=== PATIENT | female | born 1945 | race Caucasian/White ===

== ENCOUNTER 2024-05-30 09:36 | Outpatient (RCR) | payer MEDICARE, BC, SELFPAY ==
--- NOTE | 2024-05-30 10:46 | PT.OPEX ---
PT [facility] Eval PT [facility] Out[facility] Eval Start: 05/15/24 13:45 Freq: Status: Active Protocol: Document 05/30/24 07:13 MLS (Rec: 05/30/24 10:43 MLS [id number]) E-signed By Sabi Silver DPT Physical Therapy Outpatient Evaluation Insurance Information Recert Due Date 08/27/24 Insurance Name Medicare B,[employer] Medical Diagnosis M17.12 unilateral primary OA, left knee Z96.652 Presence of left artificial knee joint s/p left TKA 06/05/24 Treating Diagnosis Left TKA protocol Subjective Subjective Patient is a 78 year old female who presents to physical therapy for her pre- op appointment prior to left TKA on 06/05/24. Significant past medical history includes lumpectomy ( previous fall, currently cancer free) and hypertension controlled. Pain Comments Today: 4/10 on a 0-10 pain scale with 10 = extreme pain At its worst: 7/10 At its best: 2/10 Current Work Status Retired Precautions Weight Bearing Status Full Weight Bearing Therapy Limitations/Systems Review Not Limited Objective Other/Pertinent Objective GAIT/FUNCTIONAL MOBILITY KNEE ROM Left: -10-120 Right: WNL HIP ROM Grossly tested WNL LLE MMT: Hip flexion: R 5/5 L 4/5 Hip abduction: R 4/5 L 4/5 Hip extension: R 4/5 L 4/5 Knee flexion: R 5/5 L 4/5 Knee extension: R 5/5 L 4/5 Reviewed/demonstrated on frequency to perform HEP post operatively including: long sitting quad ankle pumps supine heel slide with strap supine quad sets supine SAQ SLR with quad set seated long arc quad seated knee flexion AAROM supine knee extension stretch on towel roll Extensive discussion and education on what to expect post operatively. Time was spent discussing home modifications, Assistive devices, pain control, fall prevention, hospital stay time line, and assist needed for activities post surgically. Pt questions were answered and demonstrated understanding. Assessment Assessment/Impression Pt is a 78 year old female who presents for her pre-op appointment prior to left TKA on 06/05/24. Patient also has notable objective findings including limited ROM, tenderness to palpation, and decreased strength which are also likely contributing to the problem. Patient is a good candidate for skilled therapy to target deficits described above. Skilled PT intervention is necessary for use of therapeutic exercise manual therapy, neuromuscular re- education, gait training, and therapeutic activity. Functional impairments include difficulty with: standing, walking, exercising and ADLs. See appropriate sections of PT eval for complete list of goals and POC. D/C plan and criteria is for pt to achieve the goals as listed below or until max rehab potential is met. Pt was agreeable with plan of care and goals established. Primary Functional Limitations standing walking exercising ADLS Plan of Care Rehabilitation Potential Good Physical Therapy Goals Within 10-12 weeks: 1) Pt will improve knee AROM at least 0 to 120 for improved sit to stand transfers 2) Pt will demonstrate negative extensor lag during straight leg raise exercise with ability to complete at least 15 reps with 5 sec hold to improve strength for ambulation 3) Patient will demonstrate/ report ability to walk for 15 minutes w/SPC with pain level <1/10, to allow for community and household ambulation. 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 Coordination/Communication With Referral Source Treatment Plan/Direct Interventions Gait Training,Manual Therapy, Neuromuscular Re-ed, Therapeutic Activities, Therapeutic Exercises Patient Will Be Discharged From Therapy Independently Progressing Evaluation Billing Untimed Code Treatment Minutes 40 Complexity Low Certification Information Provider Signature Required Yes Provider Signature Shows Agreement With POC & Medical Necessity Physician NPI Number Write NPI# Here Physician Comment/Change : Physician Signature & Date Requested Please Sign/Date Here
== END 2024-09-10 08:28 | disposition home or self-care (01) ==
PROVIDERS: PCP Internal Medicine; Visit Provider Orthopaedic Surgery
DX: M17.12 Unilateral primary osteoarthritis, left knee (principal); Z96.652 Presence of left artificial knee joint; Z51.89 Encounter for other specified aftercare
CPT/HCPCS: 97161

== ENCOUNTER 2024-06-05 06:46 | Day surgery (SDC) | payer MEDICARE, BC, SELFPAY ==
[2024-06-05] VITALS (19 sets, daily range): BP systolic 107–155; BP diastolic 63–81; PULSE 65–87; RESP 16; TEMP 36.2–37; O2SAT 93–100; BMI 27.7
[2024-06-05] MEDS: LACTATED RINGERS 1000 ML 1,000 ML 100 ML IV (07:32)
[2024-06-05] MEDS: SODIUM CHLORIDE 0.9 % (FLUSH) 10 ML SYRINGE IVF (07:32)
[2024-06-05] MEDS: ACETAMINOPHEN 500 MG TABLET 1000 MG PO ×2 (08:15→13:54)
[2024-06-05] MEDS: OXYCODONE (CR) 10 MG TAB.ER.12H PO (08:15)
[2024-06-05] MEDS: CELECOXIB 200 MG CAPSULE PO (08:15)
[2024-06-05] MEDS: fentaNYL 100 MCG/2 ML inj IVP (08:50)
[2024-06-05] MEDS: MIDAZOLAM HCL 1 MG/ML inj IVP (08:50)
--- NOTE | 2024-06-05 09:05 | SUR.PREOP ---
TIME?OUT:?0850 PT/RN/MDA?VERIFICATION?OF?SURGICAL?SITE,?PROCEDURE,?AND?CONSENT OBTAINED?PRIOR?TO?INVASIVE?PROCEDURE.
[2024-06-05] MEDS: CEFAZOLIN 2 GM INJ IVP (09:20)
[2024-06-05] MEDS: TRANEXAMIC ACID 100 MG/ML INJ 1000 MG IV (09:22)
--- NOTE | 2024-06-05 09:45 | W.PM.NB ---
Nerve Block Nerve Block Time Seen by Provider: 08:55 Date Seen: 06/05/24 Type of block requested by surgeon for post-operative analgesia: adductor canal Side: left Time out performed: Yes Verification of patient name: Yes Verification of date of : Yes Site marking: site marked Name of person performing procedure: Chandler Continuous monitoring Was continuous monitoring of O2 sat, B/P, nurse monitoring, recorded every 15 minutes?: Yes Procedure Checklist: sterile prep, needles and gloves Ultrasound guided. Images saved: Yes Medications given in 5ml increments after negative aspiration: Marcaine %: 0.25 mL: 15 Needle gauge: 20 Precedex (mcg): 25 Patient tolerated procedure well: Yes Block Charges Block Charge (with Pro Fee): Femoral Nerve Use of Ultrasound Machine for Block: Yes- US Guidance/pain block
--- NOTE | 2024-06-05 09:45 | W.PM.NB ---
Nerve Block Nerve Block Time Seen by Provider: 08:55 Date Seen: 06/05/24 Type of block requested by surgeon for post-operative analgesia: geniculars Side: left Time out performed: Yes Verification of patient name: Yes Verification of date of : Yes Site marking: site marked Name of person performing procedure: Chandler Continuous monitoring Was continuous monitoring of O2 sat, B/P, process engineering technician, recorded every 15 minutes?: Yes Procedure Checklist: sterile prep, needles and gloves Ultrasound guided. Images saved: Yes Medications given in 5ml increments after negative aspiration: Marcaine %: 0.25 mL: 9 Needle gauge: 25 Patient tolerated procedure well: Yes Block Charges Block Charge (with Pro Fee): Genicular Nerve Block
--- NOTE | 2024-06-05 09:46 | W.ANESCHARGE ---
Anesthesia Charges Start Date/Time Anesthesia Start Date: 06/05/24 Anesthesia Start Time: 09:13 Stop Date/Time Anesthesia Stop Date: 06/05/24 Anesthesia Stop Time: 11:06 Summary Extremes of Age - Over 70 or under 1: MDA
--- NOTE | 2024-06-05 10:30 | CRLHL7_ITS ---
For Patients: As a result of the Cures Act, medical imaging exams and procedure reports are released immediately into your electronic medical record. You may view this report before your referring provider. If you have questions, please contact your health care provider. Indication: Postop TKA Technique: Two views left knee Findings/Impression: Hardware from a left total knee arthroplasty is in satisfactory position. Bone alignment is normal. No sign of acute fracture. Postop changes are within normal limits. Dictated by Gagandeep Aiken MD @ 06/05/2024 11:41:36 AM (Electronically Signed)
--- NOTE | 2024-06-05 10:33 | P.ORPRC_ITS ---
Procedure Note Date of procedure: 06/05/24 Procedure: PREOPERATIVE DIAGNOSIS: Left knee osteoarthritis POSTOPERATIVE DIAGNOSIS: Left knee osteoarthritis NAME OF OPERATION: Left total knee arthroplasty SURGEON: Clayton Rodriguez MD [employer] OPERATOR: ENRRIQUE Park ANESTHESIA: Spinal ESTIMATED BLOOD LOSS: 0 mL COMPLICATIONS: None SPECIMENS: None DRAINS: None PREOPERATIVE ANTIBIOTICS: Ancef 1 g IMPLANTS: 1. J&J Attune # 3 posterior stabilized femur 2. # 3 fixed-bearing tibia 3. # 3 posterior stabilized, 5 mm fixed-bearing polyethylene 4. 38 patella INDICATIONS: The patient is a 78-year-old with a longstanding history of severe, unrelenting left knee pain secondary to end-stage (grade IV) left knee osteoarthritis. Despite appropriate nonoperative management, including activity modification, anti-inflammatories, [id number] pain medication, bracing, physical therapy, and injections they continue to have pain and disability. Operative intervention was offered. The risks, benefits and expected outcomes were discussed in detail. These included but were not limited to: Infection, bleeding, injury to blood vessel or nerve, venous thromboembolism. All questions were answered to their satisfaction. Use of an assistant manager/embalmer was necessary throughout the case for patient positioning and safety, soft tissue retraction, and closure. PROCEDURE: Spinal anesthesia was administered. The patient was placed supine on the operating table. The assistant manager/embalmer made sure the patient was positioned appropriately. The lower extremity was prepped and draped in the usual sterile fashion. The limb was exsanguinated with the Konstantin bandage. The pneumatic tourniquet was inflated to 300 mmHg. A standard anterior incision was made with the knee in flexion. Subcutaneous dissection was sharply taken through fascial layer #1. Full-thickness medial and lateral flaps were elevated. The assistant manager/embalmer retracted the soft tissues and protected them throughout the case. A standard subvastus approach was made. The patella was subluxed. The infrapatellar fat pad was debrided. The menisci and cruciate ligaments were sharply d?brided. Marginal osteophytes were d?brided with the rongeur. The drill was used to penetrate the femoral canal. The canal was aspirated and irrigated with pulse lavage. The intramedullary femoral guide was placed for a 5-degree valgus cut, removing 10 mm off the distal femur. The saw was used to make the cut. Whitesides line and the trans epicondylar axis were marked. The femoral sizing guide was pinned onto the distal femur. Three degrees of external rotation nicely parallels the transepicondylar axis. Pins were placed for posterior referencing. The four-in-one cutting guide was pinned onto the distal femur. The anterior, posterior, and chamfer cuts were made. The assistant manager/embalmer protected the collateral ligaments. The box cutting guide was pinned. The box cuts were made. The boxed trial was placed and was an excellent fit. Drill holes for the lugs were made. Attention was then turned to the proximal tibia. The extramedullary tibial guide was placed for a neutral varus/valgus cut with 5 degrees of posterior slope, removing 2 mm based off the medial tibial surface. The assistant manager/embalmer protected the collateral ligaments and the neurovascular bundle. The saw was used to make the cut. Trial components were placed. The knee was nicely balanced in both flexion and extension. The trial components were removed. The tray was placed in appropriate rotation, parallel to our tibial cutting pins. It was pinned by the assistant manager/embalmer and the drill and the punch were used. The tray was removed. The punch was used again. We placed a bone plug in the femoral canal. Attention was then turned to the patella. Tejon patellar thickness was 19.5 mm. The lobster claw resection guide was used with the 7.5 mm raul plus a saw blade used as an extra raul. The saw was used to make the cut. Drill holes were made by the assistant manager/embalmer. The trial was placed and was an excellent fit. Cancellous surfaces were irrigated with pulse lavage and thoroughly dried by the assistant manager/embalmer. We cemented the tibial component, then the femoral component. We impacted the 5 mm polyethylene onto the tibial tray. The knee was brought into full extension. We then cemented the patellar component. Excessive cement was removed. The cement was allowed to harden. The knee was taken through a range of motion and was found to be nicely balanced in both flexion and extension. The patella tracks centrally. The assistant manager/embalmer did a three minute dilute Betadine solution soak. The assistant manager/embalmer irrigated the wound with 3 liters of normal saline via pulse lavage. The assistant manager/embalmer reapproximated the extensor mechanism with #1 Vicryl in an interrupted [id number] fashion. The assistant manager/embalmer then ran the extensor mechanism with a #1 PDO Stratafix. The assistant manager/embalmer closed the subcutaneous tissues with a 3-0 Stratafix and the skin with a running 3-0 Stratafix in a subcuticular fashion. Glue was used to seal the skin. The assistant manager/embalmer placed a dry dressing. Sponge and needle counts were correct x2. The patient tolerated the procedure well. There were no apparent complications. They were carefully transferred to the hospital bed and taken to the postanesthesia care unit in satisfactory condition. PLAN: The patient will be mobilized with physical therapy. Aspirin will be used for DVT prophylaxis. They will be discharged to home once medically appropriate.
--- NOTE | 2024-06-05 11:07 | W.ANESCHARGE ---
Anesthesia Charges Start Date/Time Anesthesia Start Date: 06/05/24 Anesthesia Start Time: 09:13 Stop Date/Time Anesthesia Stop Date: 06/05/24 Anesthesia Stop Time: 11:06
--- NOTE | 2024-06-05 11:24 | SUR.PHASEI ---
Xray here for AP/LAT left knee
[2024-06-05] MEDS: OXYCODONE 5 MG TABLET PO (12:20)
[2024-06-05] MEDS: METOCLOPRAMIDE HCL 5 MG/ML INJ 10 MG IVP (16:00)
[2024-06-05] MEDS: hydrOXYzine pamoate 25 MG CAPSULE PO (16:13)
== END 2024-06-05 16:38 | disposition home or self-care (01) ==
LOC: OR 06:49
PROVIDERS: PCP Internal Medicine; Visit Provider Orthopaedic Surgery
PROC: (CPT 27447; principal; 2024-06-05 09:15)
DX: M17.12 Unilateral primary osteoarthritis, left knee (principal); G89.18 Other acute postprocedural pain; I10 Essential (primary) hypertension; G47.00 Insomnia, unspecified; M85.80 Other specified disorders of bone density and structure, unspecified site
CPT/HCPCS: 27447; 01402; 64447; 64454; 73560; 76942; 97110; 97116; 97162; 97530; 99100; A9270; C1776; J0665; J0690; J2250; J2405; J2704; J2765; J3010; J7120

== ENCOUNTER 2024-09-13 06:28 | Day surgery (SDC) | payer MEDICARE, BC, SELFPAY ==
[2024-09-13] VITALS (13 sets, daily range): BP systolic 126–161; BP diastolic 73–95; PULSE 66–104; RESP 14–16; TEMP 36.2–36.8; O2SAT 94–98; BMI 27.1
--- OUTSIDE RECORDS SUMMARY | 2024-09-13 06:31 | XMS_ITS | Clinical Summary ---
Author Organization [employer] [facility] Address [address] [place] [address] Care Team Providers Care Sports Lawyer Name Role Phone Aliyah Real MD Primary Care Provider [phone] Allergies Active Allergy Reactions Criticality Noted Date Comments Hymenoptera Allergenic Extract Angioedema 12/18/2013 Local profound swelling as well as throat swelling Clindamycin *Unknown 10/13/2016 Diltiazem Other - Describe In Comment Field 09/22/2018 Swollen tongue. Palpitations Penicillins Rash 09/15/2011 Hydrocodone-Acetamino phen Nausea And Vomiting Medium 09/16/2011 Medications EPINEPHrine (EPIPEN) 0.3 mg/0.3 mL injection Inject 0.3 mg intramuscular one time if needed for Allergic Reaction. Active cholecalciferol (VITAMIN D3) 1,000 unit tablet Take 1,000 Units by mouth once daily. 2 TABLETS DURING THE WINTER AND 1 TABLET SPRING, SUMMER AND FALL Active betamethasone dipropionate 0.05% (DIPROSONE 0.05% CREAM) 0.05 % cream Apply topically to affected area(s) 2 times daily. 0 06/30/20 20 Active amLODIPine (NORVASC) 5 mg tabletIndication s:Essential hypertension Take 1 Tablet (5 mg) by mouth once daily. 90 Tablet 3 01/13/20 24 Active traZODone (DESYREL) 50 mg tabletIndication s:Chronic insomnia Take 1 Tablet (50 mg) by mouth at bedtime. 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 She was found to have an abnormality on routine screening mammogram which led to biopsy and ultimately lumpectomy. She had no invasive malignancy Status post lumpectomy on 04/27/2023 grade 2. 4 mm in size. Margins negative. 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 These lesions have favorable outcomes Plan - observation Elevated hemoglobin 11/06/2022 Knee pain 06/27/2020 Spondylosis of cervical spine 09/22/2018 Benign paroxysmal positional vertigo 02/28/2018 Albuminuria 04/08/2017 Essential hypertension 10/25/2016 Psoriasis 09/04/2014 Insomnia 10/09/2009 Osteopenia 08/31/2007 Overview (04/19/2023): 2020 DXA scan: lowest T-score -2.4. Resolved Problems Problem Noted Date Diagnosed Date Resolved Date Pain of thigh 07/09/2018 04/19/2023 Impaired fasting glucose 12/23/2017 Photoaged skin 01/05/2011 04/19/2023 Photoaged skin 01/05/2011 05/29/2021 Overview (12/05/2020): followed by Dermatology Dr. Rios Encounters Date Type Department Care Team Description 09/04/2024 2:00 PM UNDER CUTTING MACHINE OPERATOR Office Visit [address] [address] Filemon Hays MD Pre-Op Exam (09/13/2024) 09/04/2024 Travel from Last 3 Months Immunizations Name Administration Dates Next Due COVID-19 vaccine (Pfizer-Bio NTech 30mcg/0.3mL) 12YO+ BIVALENT PF, MDV 05/31/2022 COVID-19 vaccine (Pfizer-Bio NTech 30mcg/0.3mL) 12YO+ TAMIR-SUCROSE PF, MDV 02/05/2022 COVID-19 vaccine (Pfizer-Bio NTech 30mcg/0.3mL) PF, MDV 05/01/2021,10/11/2020,09/20/2020 Influenza Virus, Unspecified 03/25/2020 Influenza, High-dose Inactivated 019,05/10/2018,04/08/2017,2014,05/09/2013 Influenza, High-dose Quadriv alent Inactivated 04/20/2022,04/16/2021 Influenza, Inactivated AIIV4 (Age 65+ Years) Preserv Free 05/17/2023 Pneumococcal Poly,23-Valent (Pneumovax) 05/09/2013 Pneumococcal conj 13-Valent (Prevnar 13) 08/29/2014 Td, Preservative Free (age > = 7 Years) 09/22/2018 Tdap 09/18/2008 Zoster (Shingrix-RZV, recombinant) 02/06/2020,,10/02/2019 Zoster (Zostavax-ZVL, live) 10/25/2012 Family History Medical History Relation Name Comments Melanoma Brother 1 Melanoma Brother 2 Heart Disease Father Cancer-breast Mother at 75 Relation Name Status Comments Brother 1 Alive Brother 2 Alive Father Mother Social History Tobacco Use Types Packs/Day Years Used Date Smoking Tobacco: Never Smokeless Tobacco: Never Tobacco Cessation:Counseling Given: Yes Alcohol Use Standard Drinks/Week Comments Yes 0 (1 standard drink = 0.6 oz pur e alcohol) Occ. wine PHQ-2 Answer Date Recorded PHQ-2 TOTAL SCORE 0 01/13/2024 Social Connections Answer Date Recorded Do you often feel lonely or isolated from those around you? 0 05/08/2024 Financial Resource Strain Answer Date R ecorded Difficulty of Paying Living Expenses 3 05/08/2024 Difficulty of Paying Living Expenses Not on file 05/08/2024 Food Insecurity Answer Date Recorded Do you worry your food will run out before you are able to buy more? 1 05/08/2024 Transportation Needs Answer Date Record ed Does lack of transportation keep you from medica l appointments? 1 05/08/2024 Does lack of transportation keep you from work, meetings or getting things that you need? 1 05/08/2024 Housing Stability Answer Date Recorded What is your housing situation today? 1 05/08/2024 Utilities Answer Date Recorded Do you have trouble paying f or utilities (for example, heat, electricity, water, phone)? 1 05/08/2024 Comments No Sex and Gender Information Value Date Recorded Sex Assigned at Not on file Legal Sex Female 8:23 AM UNDER CUTTING MACHINE OPERATOR Gender Identity Not on file Sexual Orientation Not on file Obstetrics History Last Filed Vital Signs Vital Sign Reading Time Taken Comments Blood Pressure 142/86 09/04/2024 2:02 PM UNDER CUTTING MACHINE OPERATOR Pulse 110 09/04/2024 2:02 PM UNDER CUTTING MACHINE OPERATOR Temperature 36.1 C (96.9 F) 12/08/2023 12:41 PM CDT Respiratory Rate 16 12/08/2023 1:39 PM CDT Oxygen Saturation 95% 09/04/2024 2:02 PM UNDER CUTTING MACHINE OPERATOR Inhaled Oxygen Concentration - - Weight 71.2 kg (157 lb) 09/04/2024 2:02 PM UNDER CUTTING MACHINE OPERATOR Height 161.3 cm (5' 3.5) 01/13/2024 8:09 AM CDT Body Mass Index 27.38 01/13/2024 8:09 AM CDT Plan of Treatment Health Maintenance Due Date Last Done Comments RSV vaccine for adults or (1 - 1-dose 75+ series) 12/01/2022 Influenza for age 65+ 03/25/2024 05/17/2023 , 04/20/2022, 04/16/2021, Additional history exists BMI (ht and wt on same day) for age 18+ 01/12/2025 01/13/2024, 04/19/2023, 11/04/2022, Additional history exists Depression screening for age 12+ 01/12/2025 01/13/2024, 05/31/2022, 02/05/2022, Additional history exists Medicare Wellness for age 65+ 01/13/2025, 05/31/2022, 05/29/2021 Tetanus booster 09/22/2028 09/22/2018, 09/18/2008 Tdap Completed 09/18/2008 Pneumococcal series for age 50+ Completed 5, 05/09/2013 Zoster (shingles) series for age 50+ Completed 02/06/2020, 01/18/2020, 10/02/2019, Additional history exists Hepatitis C screening for ag e 18-79 Completed 05/29/2021 DEXA/DXA scan for age 65+ Completed 01/13/2024, 11/2020 COVID-19 vaccine series Completed 04/19/20 24, 05/10/2023, 05/31/2022, Additional history exists Procedures Procedure Name Priority Date/Time Associated Diagnosis Comments CBC WITH AUTO DIFFERENTIAL Routine 09/04/2024 2:33 PM UNDER CUTTING MACHINE OPERATOR Preop examination COMP METABOLIC PANEL Routine 09/04/2024 2:33 PM UNDER CUTTING MACHINE OPERATOR Preop examination XR DXA BONE DENSITY 2 SITES AXIAL Routine 01/13/2024 10:17 AM CDT Osteopenia, unspecified location ANTI HCV Routine 05/29/2021 1:59 PM CDT Need for hepatitis C screening test from Last 3 Months or Most Recently Relevant to Health Maintenance Results * CBC AND DIFFERENTIAL (09/04/2024 2:33 PM UNDER CUTTING MACHINE OPERATOR) Pathologist [facility] WHITE BLOOD CELL COUNT 8.1 3.8 - 10.8 Thousand/u L [facility] RED BLOOD CELL COUNT 4.94 3.80 - 5.10 Million/uL [facility] HEMOGLOBIN 15.4 11.7 - 15.5 g/dL [facility] HEMATOCRIT 44.4 35.0 - 45.0 % [facility] MCV 89.9 80.0 - 100.0 fL [facility] MCH 31.2 27.0 - 33.0 pg [facility] MCHC 34.7 32.0 - 36.0 g/dL [facility] Comment: For adults, a slight decrease in the calculated MCHC value (in the range of 30 to 32 g/dL) is most likely not clinically significant; however, it should be interpreted with caution in correlation with other red cell parameters and the patient's clinical condition. RDW 13.3 11.0 - 15.0 % [facility] PLATELET COUNT 386 140 - 400 Thousand/u L [facility] MPV 11.0 7.5 - 12.5 fL [facility] ABSOLUTE NEUTROPHILS 5,516 1,500 - 7,800 cells/uL [facility] ABSOLUTE LYMPHOCYTES 1,944 850 - 3,900 cells/uL [facility] ABSOLUTE MONOCYTES 494 200 - 950 cells/uL [facility] ABSOLUTE EOSINOPHILS 97 15 - 500 cells/uL [facility] ABSOLUTE BASOPHILS 49 0 - 200 cells/uL [facility] NEUTROPHILS 68.1 % [facility] LYMPHOCYTES 24.0 % [facility] MONOCYTES 6.1 % [facility] EOSINOPHILS 1.2 % [facility] BASOPHILS 0.6 % [facility] Blood BLOOD SPECIMEN / Unknown 09/04/2024 2:33 PM UNDER CUTTING MACHINE OPERATOR 09/04/2024 2:35 PM UNDER CUTTING MACHINE OPERATOR Narrative [facility] - 09/05/2024 3:23 AM UNDER CUTTING MACHINE OPERATOR FASTING:NO FASTING: NO Filemon Hays MD HEMATOLOGY Final Res ult Xtime [facility] [address] [place] [address], [facility] [address] * (ABNORMAL) COMP METABOLIC PANEL (09/04/2024 2:33 PM UNDER CUTTING MACHINE OPERATOR) [facility] GLUCOSE 153(H) 65 - 139 mg/dL [facility] Comment: Non-fasting reference interval UREA NITROGEN (BUN) 17 7 - 25 mg/dL [facility] CREATININE 0.72 0.60 - 1.00 mg/dL [facility] EGFR 87 > OR = 60 mL/min/1. 73m2 [facility] BUN/CREATININE RATIO SEE NOTE: 6 - 22 (calc) [facility] Comment: Not Reported: BUN and Creatinine are within reference range. SODIUM 138 135 - 146 mmol/L [facility] POTASSIUM 4.3 3.5 - 5.3 mmol/L [facility] CHLORIDE 101 98 - 110 mmol/L [facility] CARBON DIOXIDE 28 20 - 32 mmol/L [facility] CALCIUM 9.6 8.6 - 10.4 mg/dL [facility] PROTEIN, TOTAL 7.5 6.1 - 8.1 g/dL [facility] ALBUMIN 4.6 3.6 - 5.1 g/dL [facility] GLOBULIN 2.9 1.9 - 3.7 g/dL (calc) [facility] ALBUMIN/GLOBULIN RATIO 1.6 1.0 - 2.5 (calc) [facility] BILIRUBIN, TOTAL 0.2 0.2 - 1.2 mg/dL [facility] ALKALINE PHOSPHATASE 162(H) 37 - 153 U/L [facility] AST 15 10 - 35 U/L [facility] ALT 17 6 - 29 U/L [facility] Blood BLOOD SPECIMEN / Unknown 09/04/2024 2:33 PM UNDER CUTTING MACHINE OPERATOR 09/04/2024 2:35 PM UNDER CUTTING MACHINE OPERATOR Narrative [facility] - 09/05/2024 3:47 AM UNDER CUTTING MACHINE OPERATOR FASTING:NO FASTING: NO us Filemon Hays MD CHEMISTRY Final Res ult Xtime [facility] [address] [place] [address], [facility] [address] [place] [address] * XR DXA BONE DENSITY 2 SITES AXIAL (01/13/2024 10:17 AM CDT) Anatomical Region Laterality Modality Spine, HIPS, HIPL, HIPR Computed Radiography Impressions 01/16/2024 9:09 AM CDT Osteopenia. RECOMMENDATIONS: The National Osteoporosis Foundation recommends pharmacologic treatment for patients with T-scores of -2.5 or less, patients with prior history of fragility fractures, or patients with 10-year probability of greater than 3% at hips or greater than 20% of suffering major osteoporotic fractures. Recommend continued optimization of calcium and vitamin D intake through dietary means and/or supplementation and regular exercise. José Bashir M.D. Diagnostic/Nuclear Medicine Radiologist [email or web address] / Narrative 01/16/2024 9:09 AM CDT For Patients: Results are automatically released to your [facility] ([employer]) account once available, in compliance with federal regulations. This means that you may see your results before your provider has had a chance to review them. Please allow 2-3 business days for your provider to comment on the results. XR DXA Bone Mineral Density (BMD) EXAM LOCATION: [address] [address] PATIENT NAME: Cordelia Arteaga DATE OF : 1945 EXAM DATE: 01/13/2024 REQUESTING PROVIDER: Aliyah Real MD GENDER AT : female HEIGHT: 63.5 inches WEIGHT: 159 pounds MENOPAUSAL STATUS: Postmenopausal RACE/ETHNICITY: White RISK FACTORS: White Race CURRENT MEDICATION FOR BONE LOSS: NONE INDICATION: Osteopenia, unspecified location COMPARISON DATE(S): 2020 DXA scans are compared to prior studies for a patient only when the two (or more) studies were performed on the same scanner. It is not possible to compare data generated on one scanner to data from another because there are not standards in DXA equipment. This applies even if the two scanners are made by the same threading machine tender. PROCEDURE: Dual-energy x-ray absorptiometry performed with routine technique. Reporting is completed in the form of a T-score. The T-score represents the standard deviation from peak bone mass based on young healthy adult. A Z-score is used for diagnosis in premenopausal women, and for men under the age of 50. FINDINGS: RESULT LUMBAR SPINE L1 - L4 BMD: 1.288 g/cm2 T-Score: + 0.9 Z-Score: + 2.4 Trending: Change from prior in 2020: Increase 2.8%. RESULTS FEMUR Left femoral neck BMD: 0.701 g/cm2 T-Score: - 2.4 Z-Score: - 0.6 Right femoral neck BMD: 0.726 g/cm2 T-Score: - 2.2 Z-Score: - 0.4 Left total hip BMD: 0.825 g/cm2 T-Score: - 1.5 Z-Score: + 0.2 Right total hip BMD: 0.788 g/cm2 T-Score: - 1.7 Z-Score: - 0.1 Trending: Total Neck Mean BMD: 0.713 g/cm2 Change from prior in 2020: Decrease 0.4%. WHO criteria: Normal: T-score at or above -1 SD Osteopenia: T-score between -1.1 and -2.4 SD Osteoporosis: T-score at or below -2.5 SD LEFT: FRAX RISK CALCULATION (USED FOR OSTEOPENIA ONLY): 10-year probability of major osteoporotic fracture: 16.8%. 10-year probability of hip fracture: 5.3%. Aliyah Real MD DEXA Final Res ult * ANTI HCV (05/29/2021 1:59 PM CDT) Pathologist [facility] HEPATITIS C ANTIBODY Non-React aquiles Non-React aquiles 05/29/2021 10:01 PM CDT [facility] Comment:Antibodies to HCV no t detected; does not exclude the possibility of exposure to HCV. Blood BLOOD SPECIMEN / Unknown Venipuncture / Unknown 05/29/2021 1:59 PM CDT 05/29/2021 2:01 PM CDT Aliyah Real MD SEND OUTS Final Res ult [facility] [address] [place] [address], [place] from Last 3 Months or Most Recently Relevant to Health Maintenance Insurance MEDICARE PART B HB ONLY [place] ONLY [employer] [place] [place] MR PB ONLY MEDICARE PART A HB ONLY MEDICARE PART B HB ONLY [employer] Advance Directives Documents on File Type Date Recorded Patient Biometrics Consultant Expl anation Healthcare Directive 10/01/2018 019 * Full Code (Latest Code Status on File) Date Activated Date Inactivated Comments 04/27/2023 8:05 AM 04/27/2023 6:54 PM Question Answer Comments Code Status Discussion: Reviewed Preferences * Full Code Date Activated Date Inactivated Comments 10/18/2016 9:53 AM 10/18/2016 2:50 PM * Full Code Date Activated Date Inactivated Comments 09/16/2011 9:10 AM 09/16/2011 4:30 PM Care Teams Sports Lawyer Relationship Specialty Start Date End Date Aliyah Real MD [address] [place] [address] PCP - General Internal Medicine 06/29/20
[2024-09-13] MEDS: SODIUM CHLORIDE 0.9 % (FLUSH) 10 ML SYRINGE IVF (06:55)
[2024-09-13] MEDS: 0.9 % SODIUM CHLORIDE 500 ML 500 ML 100 ML IV (07:15)
[2024-09-13] MEDS: CEFAZOLIN 2 GM INJ IVP (07:35)
[2024-09-13] MEDS: BUPIVACAINE 0.5% 30 ML INJECTION (08:10)
--- NOTE | 2024-09-13 08:19 | PM.ORPRC ---
Procedure Note Date of procedure: 09/13/24 Procedure: PREOPERATIVE DIAGNOSIS: Left TKA arthrofibrosis POSTOPERATIVE DIAGNOSIS: Left TKA arthrofibrosis NAME OF OPERATION: Left TKA mini open lysis of adhesions, manipulation under anesthesia SURGEON: Clayton Rodriguez MD BINDING MACHINE OPERATOR: Elizabeth Mayo PA-C ANESTHESIA: General ESTIMATED BLOOD LOSS: 3 mL COMPLICATIONS: None SPECIMENS: None DRAINS: None PREOPERATIVE ANTIBIOTICS: Ancef 1 g INDICATIONS: The patient is a 78-year-old with a history of left total knee arthroplasty. They have struggled with physical therapy to regain their range of motion. Therefore, mini open lysis of adhesions, manipulation under anesthesia was recommended. The risks, benefits and expected outcomes were discussed in detail. These included but were not limited to: Infection, bleeding, injury to blood vessel or nerve, venous thromboembolism. All questions were answered to their satisfaction. PROCEDURE: Spinal anesthesia was administered. The patient was placed supine on the operating room table. Range of motion of the knee was measured with a goniometer. There is a 25 degree flexion contracture, flexion to 66?. The left lower extremity was prepped and draped in the usual sterile fashion. A standard anterolateral portal was established. The cannula blunt was inserted into the notch. It was swept distally under the patellar tendon and then swept proximally and laterally into the lateral gutter to free up adhesions. A superomedial portal was placed. The cannula blunt was placed in the suprapatellar pouch and the scarring deep to the quads tendon was freed up. It was then swept medially into the medial gutter and the adhesions in the medial gutter were freed up. We then manipulated the knee in full extension and flexion. There was no tearing of adhesions heard or felt. However, range of motion is markedly improved. Postprocedure range of motion, measured with a goniometer is 0? to 130?. The superomedial wound was closed with a 2-0 Vicryl deep and 3-0 nylon in the skin. The anterolateral portal was closed with a 3-0 nylon. The knee was infiltrated with 30 mL of 0.5% Marcaine without epinephrine. A dry dressing was applied, the tourniquet was released. Sponge and needle counts were correct x 2. The patient tolerated the procedure well. There were no apparent complications. They were carefully transferred to the hospital bed and taken to the postanesthesia care unit in satisfactory condition. PLAN: The patient will be discharged to home. They may weightbear as tolerates. Range of motion will be unrestricted. We will plan a prednisone burst and taper. They will follow up with therapy as scheduled tomorrow. They will follow up in the office in 1-2 weeks for a wound check.
--- NOTE | 2024-09-13 08:27 | P.ANES_ITS ---
Anesthesia Charges Start Date/Time Anesthesia Start Date: 09/13/24 Anesthesia Start Time: 07:35 Stop Date/Time Anesthesia Stop Date: 09/13/24 Anesthesia Stop Time: 08:28 Coding CPT Codes CPT Codes: ANESTH KNEE JOINT SURGERY - 45597 ([id number]) P2 - PATIENT W/MILD SYST DISEASE, QK - DOOR CUTTER 2-4 CNCRNT ANES PROC, QX - DAMPER WORKER SVC W/ MD MED DIRECTION
--- NOTE | 2024-09-13 08:27 | W.ANESCHARGE ---
Anesthesia Charges Start Date/Time Anesthesia Start Date: 09/13/24 Anesthesia Start Time: 07:35 Stop Date/Time Anesthesia Stop Date: 09/13/24 Anesthesia Stop Time: 08:28 Coding CPT Codes CPT Codes: ANESTH KNEE JOINT SURGERY - 23563 ([id number]) P2 - PATIENT W/MILD SYST DISEASE, QK - MAINTENANCE MANAGER 2-4 CNCRNT ANES PROC, QX - CIGAR PACKING EXAMINER SVC W/ MD MED DIRECTION
[2024-09-13] MEDS: fentaNYL 100 MCG/2 ML inj 50 MCG IVP (08:45)
--- NOTE | 2024-09-13 09:07 | P.ANES_ITS ---
Anesthesia Charges Start Date/Time Anesthesia Start Date: 09/13/24 Anesthesia Start Time: 07:35 Stop Date/Time Anesthesia Stop Date: 09/13/24 Anesthesia Stop Time: 08:28 Summary Extremes of Age - Over 70 or under 1: MDA Coding CPT Codes CPT Codes: ANESTH KNEE JOINT SURGERY - 63242 ([id number]) QK - EVENT MARKETING INTERN 2-4 CNCRNT ANES PROC, QX - RESTAURANT MAINTENANCE TECHNICIAN SVC W/ MD MED DIRECTION, P2 - PATIENT W/MILD SYST DISEASE Additional Codes: Summary - Extremes of Age - Over 70 or under 1: MDA ([id number])
--- NOTE | 2024-09-13 09:28 | SUR.OPER ---
PATIENT QUESTIONS ANSWERED SATISFACTORILY PREOPERATIVELY.? PATIENT BROUGHT TO OR #3 PER CART.? Patient positioned supine on OR #3 bed.? The perioperative?team supported arms bilaterally on arm boards.? Final approval of positioning by surgeon.?
== END 2024-09-13 10:42 | disposition home or self-care (01) ==
PROVIDERS: PCP Internal Medicine; Visit Provider Orthopaedic Surgery
PROC: (CPT 29870; principal; 2024-09-13 07:45)
DX: M24.662 Ankylosis, left knee (principal); Z96.652 Presence of left artificial knee joint
CPT/HCPCS: 27570; 01380; 01400; 99100; J0665; J0690; J1100; J1885; J2405; J2704; J3010; J7030